=== PATIENT | male | born 1960 | race Caucasian/White ===

== ENCOUNTER 2018-01-20 12:25 | Emergency (ER) | payer OTHER ==
[~2018-01-20] VITALS: Ht 185.4 cm; Wt 114.5 kg
[2018-01-20 12:29] VITALS: TEMP 97.8
[2018-01-20] MEDS ORDERED: MULTIPLE VITAMI1 CAP PO (13:03)
[2018-01-20] MEDS ORDERED: THE MEDICINE S200 M2 PO (13:04)
[2018-01-20] MEDS ORDERED: MASON NATURAL1200 MG PO (13:04)
[2018-01-20] MEDS ORDERED: NATURAL FLAX1000 MG PO (13:05)
[2018-01-20 13:16] LABS: ALANINE AMINOTRANSFERASE 43 U/L (21-72); ALBUMIN 4.5 gm/dL (3.5-5.0); ALKALINE PHOSPHATASE 63 U/L (50-136); ANION GAP 10 mmol/L (7-16); AST,SGOT 27 U/L (15-37); BILIRUBIN,TOTAL 0.4 mg/dL (0.0-1.0); BLOOD UREA NITROGEN 17 mg/dL (9-20); CALCIUM 9.1 mg/dL (8.4-10.2); CARBON DIOXIDE 27 mmol/L (22-30); CHLORIDE 103 mmol/L (98-107); CREATINE KINASE 70 U/L (55-170); GLUCOSE 112 mg/dL (74-106); POTASSIUM 3.7 mmol/L (3.4-5.0); SODIUM 140 mmol/L (137-145); TOTAL PROTEIN 7.4 gm/dL (6.4-8.2)
[2018-01-20 13:17] LABS: BASO # 0.1 (0.0-0.2); BASO % 0.8 % (0.0-2.0); EOS # 0.1 (0.0-0.7); EOS % 1.5 % (0-4.0); GRAN # 3.9 (1.4-6.5); GRAN % 59.8 % (42.2-75.2); HEMATOCRIT 45.3 % (42.0-52.0); HEMOGLOBIN 15.6 g/dl (13.5-18.0); MEAN CELL VOLUME 85 fl (80.0-100.0); MEAN CORPUSCULAR HEMOGLOBIN 29 pg (27.0-31.0); MEAN CORPUSCULAR HGB CONC 34 g/dl (33.0-37.0); MEAN PLATELET VOLUME 10.1 fl (7.4-10.4); MONO # 0.5 (0.1-0.6); MONO % 7.3 % (1.7-9.3); PLATELET COUNT 174 K/mm3 (130-400); RED BLOOD COUNT 5.33 M/mm3 (4.20-5.60); REDCELL DISTRIBUTION WIDTH-CV 12.8 % (11.5-14.5)
[2018-01-20 13:43] LABS: TROPONIN-I < 0.012 ng/mL (0.000-0.034)
[2018-01-20] MEDS ORDERED: CATAPRES 0.1MG0.1 MG PO (14:48)
[2018-01-20] MEDS ORDERED: ZESTRIL 10MG10 MG PO (14:48)
[2018-01-20 15:10] VITALS: BP 167/105; PULSE 73
== END 2018-01-20 15:11 | disposition home or self-care (01) ==
LOC: COL.ER 12:25
PROVIDERS: Emergency Medicine
DX: I10 Essential (primary) hypertension (principal); F17.210 Nicotine dependence, cigarettes, uncomplicated
CPT/HCPCS: J2060